=== PATIENT | female | born 1945 | race Caucasian/White ===

== ENCOUNTER 2023-12-12 08:18 | Observation (INO) ==
--- NOTE | 2023-12-12 08:36 | ED.PDOC ---
General ED Provider: Dr. REESE CARDENAS Chief Complaint: Abdominal Pain Stated Complaint: comes to the ER with diffuse abdominal cramping that started yesterday worse today. Time Seen by Provider: 12/12/23 08:34 Information Source: Patient Primary Care Provider: BRIDGET WALKER Nursing and Triage Documentation Reviewed and Agree: Yes What is Opioid Naive?: *Opioid Naive implies the patient is not already taking opioids or not chronically receiving opioids on a daily basis. *PRN dosing is not "usually" associated with tolerance. *Patients are at higher risk of over-sedation and aspiration. What is Opioid Tolerant?: *Opioid Tolerance implies less than the expected response to an opioid. *Acquired tolerance is defined by the patient taking 60mg of oral morphine daily (or equianalgesic dose of another opioid) for 1 week or more. *Often associated with chronic pain. *May take more than usual dose to achieve desired pain control. Review of Systems Review Of Systems Constitutional: Reports No symptoms GI: Reports Diarrhea, Nausea and Vomiting Musculoskeletal: Reports No symptoms Skin: Reports No symptoms All Other Systems: Reviewed and Negative [facility] Medical History (Updated 12/12/23 @ 11:11 by SHANICE KATHLEEN RN) Aftercare following left hip joint replacement surgery Z47.1 - Aftercare following joint replacement surgery (ICD-10) Z96.642 - Presence of left artificial hip joint (ICD-10) HTN (hypertension) I10 - Essential (primary) hypertension (ICD-10) Macular degeneration H35.30 - Unspecified macular degeneration (ICD-10) Diabetes mellitus E11.9 - Type 2 diabetes mellitus without complications (ICD-10) Family History Mother Heart attack Social History Smoking and tobacco status: Never smoker Surgical History History of back surgery Z98.890 - Other specified postprocedural states (ICD-10) History of left hip replacement Z96.642 - Presence of left artificial hip joint (ICD-10) Female Reproductive History Menstrual Hx Hysterectomy: No Hx Tubal Ligation: No Physical Exam Physical Exam Appearance: Reports Ill-appearing and Obese Ill-appearing: Moderate Pain Distress: None Eyes: Reports WANDA, EOMI and Conjunctiva clear Respiratory: Reports Airway patent, Breath sounds clear and Breath sounds equal Cardiovascular: Reports RRR, Pulses normal and No rub GI/: Reports Soft and Nontender Musculoskeletal: Reports Normal strength, ROM intact and No edema Skin: Reports Warm and Dry Neurological: Reports Motor intact Psychiatric: Reports Anxious Interpretation EKG Interpretation EKG Interpretation By: ED Physician Time of EKG #1: 09:19 Rate: Normal Rhythm: Sinus Ectopy: None [place]: [place] ST Segment: Normal Interpretation: Normal sinus rhythm normal EKG. No signs of ischemia normal axis. EKG Comparison: No significant changes Radiology Interpretation Radiology Interpretation By: Radiologist Radiology Results: No acute changes (1. Thickening of the wall of the first and second part of duodenum with mild adjacent mesenteric edema. This may indicate inflammation, infection, ulcer, or neoplasm. Clinical correlation and endoscopy advised. 2. Anemia. 3. Other chronic changes as described above. ) Exam Interpreted: CT Scan Course Course 12/12/23 08:44 12/12/23 08:44 Orders, Labs, Meds: Lab Review 12/12/23 12/12/23 12/12/23 08:44 09:29 09:52 WBC 8.93 RBC 3.81 L Hgb 10.1 L Hct 31.7 L MCV 83.2 MCH 26.5 L MCHC 31.9 RDW Coeff of Bartolo 13.9 Plt Count 245 Immature Gran % (Auto) 0.3 Neut % (Auto) 61.4 Lymph % (Auto) 26.3 Crowley % (Auto) 9.0 Eos % (Auto) 2.7 Baso % (Auto) 0.3 Neut # (Auto) 5.5 Lymph # (Auto) 2.4 Crowley # (Auto) 0.8 Eos # (Auto) 0.2 Baso # (Auto) 0.0 Immature Gran # (Auto) 0.0 Sodium 133.3 L Potassium 3.89 Chloride 103.3 Carbon Dioxide 22.3 Anion Gap 11.59 BUN 22.6 H Creatinine 1.10 Estimated GFR (MDRD) 48.00 BUN/Creatinine Ratio 20.54 Glucose 193.7 H Calcium 9.40 Total Bilirubin 0.59 AST 33.2 ALT 19.3 Alkaline Phosphatase 95.1 Total Creatine Kinase 134.5 CK-MB (CK-2) 2.050 CK-MB (CK-2) % 1.5200 Troponin I < 0.012 Total Protein 7.21 Albumin 3.80 Globulin 3.41 Albumin/Globulin Ratio 1.11 Amylase 94.6 Lipase 739.1 H Urine Color Yellow Urine Clarity Clear Urine pH 6.0 Ur Specific [place] 1.010 Urine Protein Negative Urine Glucose (UA) Negative Urine Ketones Negative Urine Blood Negative Urine Nitrite Negative Urine Bilirubin Negative Urine Urobilinogen 0.2 Ur Leukocyte Esterase Negative SARS CoV-2 RNA Rapid PATRICIA Negative Orders Category Date Time Status ADMIT OBSERVATION [PLACE PATIENT OBSERVATION] .TO ADMISSION 12/12/23 09:51 Active MEDSURG (MONITORED BED) EKG-(ED ONLY) Stat CARDIO 12/12/23 08:35 Completed TELEMETRY MONITORING TELE CARE 12/12/23 09:51 Active ED IV/MEDIPORT/POWERPORT .ONCE EMERGENCY 12/12/23 08:34 Active AMYLASE Stat LAB 12/12/23 08:44 Completed CBC W/ AUTO DIFF Stat LAB 12/12/23 08:44 Completed COMPREHENSIVE METABOLIC PANEL Stat LAB 12/12/23 08:44 Completed CREATINE KINASE Stat LAB 12/12/23 08:44 Completed LIPASE Stat LAB 12/12/23 08:44 Completed SARS COV-2 RNA RAPID PATRICIA Stat LAB 12/12/23 09:52 Completed TROPONIN I Stat LAB 12/12/23 08:44 Completed URINALYSIS C & S IF INDICATED Stat LAB 12/12/23 09:29 Completed 0.9 % Sodium Chloride [Saline Flush] Meds 12/12/23 08:34 Active 1 syr IVF PRN PRN Morphine Sulfate [Morphine 2 mg/ml Syringe] Meds 12/12/23 08:34 Discontinued 2 mg IVP ONCE ONE Ondansetron HCl/Pf [Zofran 4 mg/2 ml] Meds 12/12/23 08:34 Discontinued 4 mg IVP ONCE STA Sodium Chloride 0.9% [Sodium Chloride] 1,000 ml Meds 12/12/23 08:[address] ABDOMEN/PELVIS WO CONTRAST Stat RADS 12/12/23 08:34 Completed Medications Generic Name Dose Route Start Last Admin Trade Name Freq PRN Reason Stop Dose Admin Acetaminophen 650 mg 12/12/23 10:40 Acetaminophen 325 Mg Tablet PO Q4H PRN Mild Pain Calcium/Vitamin D 1 each 12/13/23 09:00 Calcium Carbonate/Vitamin D3 500 Mg/5 Mcg(200iu) 1 Each Tablet PO DAILY [facility] Donepezil HCl 5 mg 12/12/23 17:00 Donepezil Hcl 10 Mg Tablet PO QPM [facility] Ferrous Sulfate 324 mg 12/13/23 09:00 Ferrous Sulfate 324 Mg Tablet. PO DAILY [facility] Fluoxetine HCl 20 mg 12/12/23 21:00 Fluoxetine Hcl 20 Mg Capsule PO BID [facility] Dextrose/Sodium Chloride 1,000 mls @ 100 mls/hr 12/12/23 11:00 12/12/23 11:05 Dextrose 5%-Ns Iv Solution IV 100 mls/hr .Q10H JIMBO Administration Insulin Human Regular 0 unit 12/12/23 10:40 Insulin Regular, Human 100 Unit/Ml (10ml) Vial SUBCUT PRN PRN Hyperglycemia Protocol Ketorolac Tromethamine 15 mg 12/12/23 11:23 Ketorolac Tromethamine 15 Mg/Ml Vial IVP 12/16/23 11:23 Q6HR PRN Pain Levothyroxine Sodium 112 mcg 12/13/23 06:00 Levothyroxine Sodium 112 Mcg Tablet PO QDAC2 [facility] Metoclopramide HCl 5 mg 12/12/23 11:23 Metoclopramide Hcl 10 Mg/2 Ml IVP Q6H PRN Nausea / Vomiting Metoprolol Succinate 50 mg 12/13/23 09:00 Metoprolol Succinate 50 Mg Tab.Er.24h PO DAILY [facility] Omeprazole 40 mg 12/13/23 06:00 Omeprazole 20 Mg Capsule. PO QDAC2 [facility] Ondansetron HCl 4 mg 12/12/23 11:23 Ondansetron Hcl/Pf 4 Mg/2 Ml Sdv IVP Q6H PRN Nausea / Vomiting Pantoprazole Sodium 40 mg 12/12/23 11:25 12/12/23 11:52 Pantoprazole Sodium 40 Mg Vial IVP 40 mg DAILY [facility] Administration Sodium Chloride 1 syr 12/12/23 08:34 12/12/23 11:06 0.9% Sodium Chloride 10 Ml Disp.Syrin IVF 1 syr PRN PRN Administration To flush IV Discontinued Medications Generic Name Dose Route Start Last Admin Trade Name Freq PRN Reason Stop Dose Admin Sodium Chloride 1,000 mls @ 1,000 mls/hr 12/12/23 08:36 12/12/23 09:57 Sodium Chloride IV 12/12/23 09:35 Infused BOLUS STA Infusion Morphine Sulfate 2 mg 12/12/23 08:34 12/12/23 08:53 Morphine Sulfate 2 Mg/Ml Syringe IVP 12/12/23 08:35 2 mg ONCE ONE Administration Ondansetron HCl 4 mg 12/12/23 08:34 12/12/23 08:53 Ondansetron Hcl/Pf 4 Mg/2 Ml Sdv IVP 12/12/23 08:35 4 mg ONCE STA Administration Vital Signs: Temp Pulse Resp BP Pulse Ox 12/12/23 08:29 97.8 F 87 17 119/60 99 Discharge Plan Discharge Patient Disposition: PLACED OBSERVATION Discharge Problem: Acute pancreatitis Qualifiers: Pancreatitis type: unspecified pancreatitis type Acute pancreatitis complication: unspecified Qualified Code(s): K85.90 - Acute pancreatitis without necrosis or infection, unspecified Did you review [place] [employer] [employer] for ALL controlled substances?: No ED Provider: REESE CARDENAS Condition: Fair Physician Progress Note: []
[2023-12-12 08:48] LABS: BASOPHILS % (AUTO) 0.3 % (0.0-3.0); EOSINOPHILS # (AUTO) 0.2 K/ul (0.0-0.7); EOSINOPHILS % (AUTO) 2.7 % (0.0-7.0); HEMATOCRIT 31.7 % (37.0-47.0); HEMOGLOBIN 10.1 g/dl (12.0-16.0); IMMATURE GRANULOCYTE % (AUTO) 0.3 % (0.0-5.0); LYMPHOCYTES # (AUTO) 2.4 K/uL (0.60-3.4); LYMPHOCYTES % (AUTO) 26.3 (10.0-50.0); MEAN CORPUSCULAR HEMOGLOBIN 26.5 pg (27.0-31.0); MEAN CORPUSCULAR HGB CONC 31.9 (31.8-35.4); MEAN CORPUSCULAR VOLUME 83.2 fl (81.0-99.0); MONOCYTES # (AUTO) 0.8 K/uL (0.4-2.0); NEUTROPHILS # (AUTO) 5.5 K/ul (2.0-6.9); NEUTROPHILS % (AUTO) 61.4 % (42.2-75.2); PLATELET COUNT 245 10^3/uL (140-440); RDW COEFFICIENT OF VARIATION 13.9 % (11.6-14.8); RED BLOOD COUNT 3.81 10^6/ul (4.20-5.40); WHITE BLOOD COUNT 8.93 K/ul (4.6-10.2)
[2023-12-12] MEDS: SODIUM CHLORIDE 1,000 ML IV STA (08:52)
[2023-12-12] MEDS: ZOFRAN 4 MG/2 ML IVP STA (08:53)
[2023-12-12] MEDS: MORPHINE 2 MG/ML SYRINGE IVP ONE (08:53)
[2023-12-12 09:08] LABS: ALANINE AMINOTRANSFERASE 19.3 U/L (0-35); ALKALINE PHOSPHATASE 95.1 U/L (53-141); AMYLASE 94.6 U/L (30-110); ASPARTATE AMINO TRANSFERASE 33.2 U/L (14-36); BILIRUBIN,TOTAL 0.59 mg/dL (0.2-1.3); BLOOD UREA NITROGEN 22.6 mg/dL (7-17); CARBON DIOXIDE 22.3 mmol/L (22-30.0); CHLORIDE 103.3 mmol/L (98-107); CREATINE KINASE 134.5 U/L (30-135); GLUCOSE 193.7 mg/dL (74-106); LIPASE 739.1 U/L (23-300); SODIUM 133.3 mmol/L (134.5-145); TOTAL PROTEIN 7.21 g/dL (6.3-8.2)
[2023-12-12 09:20] LABS: POTASSIUM 3.89 mmol/L (3.5-5.1); TROPONIN I < 0.012 ng/ml (0.0000-0.120)
[2023-12-12 09:36] LABS: BILIRUBIN,URINE Negative (NEGATIVE); CLARITY,URINE Clear (CLEAR); COLOR,URINE Yellow (YELLOW); GLUCOSE, URINE (UA) Negative (NEGATIVE); KETONES,URINE Negative (NEGATIVE); LEUKOCYTE ESTERASE ,URINE Negative (NEGATIVE); NITRITE,URINE Negative (NEGATIVE); PROTEIN,URINE Negative (NEGATIVE); URINE, BLOOD Negative (NEGATIVE); UROBILINOGEN,URINE 0.2 (0.2)
--- NOTE | 2023-12-12 09:38 | CT ---
EXAM: CT ABDOMEN AND PELVIS WITHOUT CONTRAST HISTORY: Abdominal and pelvic pain. Back pain. TECHNIQUE: CT acquisition of the abdomen and pelvis from the lower thorax through the pelvis without IV contrast administration. 2-D coronal and sagittal reformatted images were obtained from the axial source images. Oral Contrast: None. CT Dose Reduction Techniques Performed: Yes. COMPARISON: Noncontrast CT scan of the abdomen and pelvis dated 02/23/2016. FINDINGS: Lower Thorax: Old calcified granuloma in the right middle lobe inferiorly. Noncalcified 0.4-cm nodul e in the left lower lobe, unchanged. No pleural effusion or pericardial effusion. Low attenuation b lood in the heart consistent with anemia. Liver: No mass. Normal morphology. Biliary: The gallbladder is surgically absent with clips noted in the gallbladder bed. The bile duct s are normal. Pancreas: No mass or evidence of pancreatitis. No duct dilation. Spleen: No mass. No splenomegaly. Adrenals: Normal right adrenal. Unchanged left adrenal adenoma. Kidneys/Ureters: No renal mass. No calculus or hydronephrosis. GI Tract: No bowel dilation. Thickening of the wall of the first and second part of the duodenum wit h adjacent mild mesenteric edema. No other bowel wall thickening. Diverticulosis of the colon with no evidence of diverticulitis. Normal appendix. Peritoneal Cavity: No ascites. Retroperitoneum: No fluid collection. Lymph Nodes: No lymphadenopathy. Vasculature: There are aortic calcifications. No aortic or iliac aneurysm within limitations of nonc ontrast examination. Pelvis: No mass. Bladder is normal. The uterus is surgically absent. Bones/Soft Tissues: Old compression fracture of T12. No acute fracture or lytic lesion. Prior fusio n at L4-5. Visualized abdominal wall soft tissues are normal. IMPRESSION: 1. Thickening of the wall of the first and second part of duodenum with mild adjacent mesenteric zaina ma. This may indicate inflammation, infection, ulcer, or neoplasm. Clinical correlation and endosco py advised. 2. Anemia. 3. Other chronic changes as described above. All CT scans are performed using dose optimization techniques as appropriate to the performed exam an d include at least one of the following: Automated exposure control, adjustment of the mA and/or kV according t o size, and the use of iterative reconstruction technique.
[2023-12-12 10:22] LABS: SARS COV-2 RNA RAPID NAAT NEGATIVE (NEGATIVE)
[2023-12-12] MEDS ORDERED: TYLENOL PO PRN (10:40)
[2023-12-12 11:05] VITALS: BMI 25.7
[2023-12-12] MEDS: DEXTROSE 5%-NS IV SOLUTION 1,000 ML IV SCH (11:05)
[2023-12-12] MEDS ORDERED: REGLAN IVP PRN (11:23)
[2023-12-12] MEDS ORDERED: ZOFRAN 4 MG/2 ML IVP PRN (11:23)
[2023-12-12] MEDS ORDERED: TORADOL IVP PRN (11:23)
--- NOTE | 2023-12-12 11:24 | PCM ---
Date of Service Date Seen by Provider: 12/12/23 Time Seen by Provider: 11:20 Admit Day/Time Admission Date: 12/12/23 Reason for Admission Chief Complaint: ACUTE PANCREATITIS Hospital Provider Hospital Provider: EZEQUIEL SALAZAR, [facility] [place] Primary Care Physician Primary Care Physician: BRIDGET WALKER History of Present Illness History of Present Illness: 78 yo female presented to the ER with abdominal pain. Patient reports that the abdominal pain started yesterday "out of no where". She reports that she thought she had picked up something viral but the pain kept getting worse. Attempted bland diet without relief of pain. Describes the pain as cramping located in lower abdomen with radiation to lower back. Denies any pmh of pancreatitis. Has pmh of dm2. Denies any fever, chills, vomiting, diarrhea, chest pain, or SOB. Does report nausea this am. Case Discussed With Case Discussed With: Patient's case was discussed with the ER Physicians, Dr. Tucker. 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 Z47.1 - Aftercare following joint replacement surgery (ICD-10) Z96.642 - Presence of left artificial hip joint (ICD-10) HTN (hypertension) I10 - Essential (primary) hypertension (ICD-10) Macular degeneration H35.30 - Unspecified macular degeneration (ICD-10) Diabetes mellitus E11.9 - Type 2 diabetes mellitus without complications (ICD-10) Surgical History History of back surgery Z98.890 - Other specified postprocedural states (ICD-10) History of left hip replacement Z96.642 - Presence of left artificial hip joint (ICD-10) Family History Mother Heart attack Social History Smoking and tobacco status: Never smoker Allergies Allergies Allergy/AdvReac Type Severity Reaction Status Date / Time aspirin AdvReac Verified 12/12/23 08:35 hydrocodone AdvReac Unknown Verified 12/12/23 08:35 tramadol [From Ultram] AdvReac Verified 12/12/23 08:35 Current Medications Home Medications calcium carb,cit ER 600 mg-vit D3 12.5 mcg (500 unit) tablet,ext.rel 1 ea PO DAILY 09/11/13 [History Confirmed 12/12/23 Last Taken 01/28/18] ferrous fumarate 55 mg (18 mg iron) tablet,extended release (iron ER) 65 mg PO DAILY 09/11/13 [History Confirmed 12/12/23 Last Taken 01/28/18] hydrochlorothiazide 12.5 mg tablet 12.5 mg PO DAILY 09/11/13 [History Confirmed 12/12/23 Last Taken 01/28/18] insulin NPH isoph U-100 human 100 unit/mL (3 mL) subcutaneous pen (Humulin N Pen) 50 units subcut DAILY 09/11/13 [History Confirmed 12/12/23 Last Taken 01/28/18] levothyroxine 112 mcg tablet 112 mcg PO QDAC 09/11/13 [History Confirmed Last Taken 01/28/18] metoprolol succinate 50 mg tablet,extended release 24 hr 50 mg PO DAILY 09/11/13 [History Confirmed 12/12/23 Last Taken 01/28/18] omeprazole 40 mg capsule,delayed release (Prilosec) 1 cap PO DAILY 09/11/13 [History Confirmed 12/12/23 Last Taken 01/28/18] acetaminophen 300 mg-codeine 30 mg tablet 1 tab PO Q6H #10 tabs 01/28/18 [Rx Confirmed 12/12/23 Last Taken Unknown] donepezil 5 mg tablet 5 mg PO .night 12/12/23 [History Confirmed 12/12/23 Last Taken Unknown] fluoxetine 20 mg capsule 20 mg PO BID 12/12/23 [History Confirmed 12/12/23 Last Taken Unknown] Home Acetaminophen (Acetaminophen 325 Mg Tablet) 650 mg PO Q4H PRN PRN Reason: Mild Pain Donepezil HCl (Donepezil Hcl 10 Mg Tablet) 5 mg PO .night JIMBO Fluoxetine HCl (Fluoxetine Hcl 20 Mg Capsule) 20 mg PO BID JIMBO Dextrose/Sodium Chloride (Dextrose 5%-Ns Iv Solution) 1,000 mls @ 100 mls/hr IV .Q10H JIMBO Last Admin: 12/12/23 11:05 Dose: 100 mls/hr Insulin Human Regular (Insulin Regular, Human 100 Unit/Ml (10ml) Vial) 0 unit SUBCUT PRN PRN; Protocol PRN Reason: Hyperglycemia Ketorolac Tromethamine (Ketorolac Tromethamine 15 Mg/Ml Vial) 15 mg IVP Q6HR PRN PRN Reason: Pain Stop: 12/16/23 11:23 Levothyroxine Sodium (Levothyroxine Sodium 112 Mcg Tablet) 112 mcg PO QDAC JIMBO Metoclopramide HCl (Metoclopramide Hcl 10 Mg/2 Ml) 5 mg IVP Q6H PRN PRN Reason: Nausea / Vomiting Metoprolol Succinate (Metoprolol Succinate 50 Mg Tab.Er.24h) 50 mg PO DAILY JIMBO Non-Formulary Medication (Ferrous Fumarate [Iron]) 65 mg PO DAILY JIMBO Non-Formulary Medication (Calcium Carb And Citrate-Vitd3) 1 each PO DAILY [facility]IM[facility] Omeprazole (Omeprazole 20 Mg Capsule.Dr) 40 mg PO DAILY [facility]IM[facility] Ondansetron HCl (Ondansetron Hcl/Pf 4 Mg/2 Ml Sdv) 4 mg IVP Q6H PRN PRN Reason: Nausea / Vomiting Pantoprazole Sodium (Pantoprazole Sodium 40 Mg Vial) 40 mg IVP DAILY [facility] Sodium Chloride (0.9% Sodium Chloride 10 Ml Disp.Syrin) 1 syr IVF PRN PRN PRN Reason: To flush IV Last Admin: 12/12/23 11:06 Dose: 1 syr Discontinued Medications Sodium Chloride (Sodium Chloride) 1,000 mls @ 1,000 mls/hr IV BOLUS STA Stop: 12/12/23 09:35 Last Infusion: 12/12/23 09:57 Dose: Infused Morphine Sulfate (Morphine Sulfate 2 Mg/Ml Syringe) 2 mg IVP ONCE ONE Stop: 12/12/23 08:35 Last Admin: 12/12/23 08:53 Dose: 2 mg Ondansetron HCl (Ondansetron Hcl/Pf 4 Mg/2 Ml Sdv) 4 mg IVP ONCE STA Stop: 12/12/23 08:35 Last Admin: 12/12/23 08:53 Dose: 4 mg Opioid Naive vs. Tolerant Does Patient Take Opioids?: No Is Patient Opioid Naive?: Yes What is Opioid Naive?: *Opioid Naive implies the patient is not already taking opioids or not chronically receiving opioids on a daily basis. *PRN dosing is not "usually" associated with tolerance. *Patients are at higher risk of over-sedation and aspiration. Is Patient Opioid Tolerant?: No What is Opioid Tolerant?: *Opioid Tolerance implies less than the expected response to an opioid. *Acquired tolerance is defined by the patient taking 60mg of oral morphine daily (or equianalgesic dose of another opioid) for 1 week or more. *Often associated with chronic pain. *May take more than usual dose to achieve desired pain control. Review of Systems Constitutional: Reports No symptoms Head: Reports Normocephalic and Atraumatic Eyes: Reports No symptoms Ears: Reports No symptoms Nose: Reports No symptoms Mouth: Reports No symptoms Throat: Reports No symptoms Cardiovascular: Reports No symptoms Respiratory: Reports No symptoms Gastrointestinal: Reports Nausea and Abdominal pain (cramping) Genitourinary: Reports No Symptoms Musculoskeletal: Reports No symptoms Endocrine: Reports No symptoms Hematology: Reports No symptoms Immunology: Reports No symptoms Neurological: Reports No symptoms Psychiatric: Reports No symptoms Physical examination Most Recent Vital Signs: Most Recent Vital Signs Temperature 98.8 F 12/12/23 10:49 Temperature Source Oral 12/12/23 10:49 Temperature Source Infrared 12/12/23 08:29 Pulse Rate 94 12/12/23 10:49 Respiratory Rate 16 12/12/23 10:49 Blood Pressure 119/60 12/12/23 08:29 Blood Pressure Left Arm 145/82 12/12/23 10:49 Blood Pressure Position Sitting 12/12/23 10:49 O2 Sat by Pulse Oximetry 98 12/12/23 10:49 Oxygen Delivery Method Room Air 12/12/23 11:00 Height 5 ft 4 in 12/12/23 10:49 Weight 150 lb 4 oz 12/12/23 10:49 Appearance: Positive No Apparent Distress, Alert and Oriented x3 and Other (SELDOVIA) Skin: Positive Warm and Good Color HEENT: Positive Normocephalic, Atraumatic and PERRLA Neck: Positive Supple and Midline Trachea Chest/Lungs: Positive Symmetrical With Equal Breath Sounds, Clear to Auscultation Bilaterally and Good Air Movement all 4 Lung Angulo Heart: Positive RRR and Pulses Normal GI/: Positive Soft, Nontender, Bowel Sounds Normal, No Distention and No Organomegaly Musculoskeletal: Positive Not Examined Extremities: Positive Intact Peripheral Pulses, Stable Joints Without Laxity, Good ROM in All Joints and Other (foot drop to R foot) Neurological: Positive Sensation Intact, Motor intact, Reflexes Intact, Alert, Oriented and Muscle Strength 5/5 in Upper and Lower Extremities Bilaterally Psychiatric: Positive Oriented x4, Appropriate Mood, Appropriate Affect and Intact Memory Labs This Visit Labs This Visit: Labs This Visit 12/12/23 12/12/23 12/12/23 08:44 09:29 09:52 WBC 8.93 RBC 3.81 L Hgb 10.1 L Hct 31.7 L MCV 83.2 MCH 26.5 L MCHC 31.9 RDW Coeff of Bartolo 13.9 Plt Count 245 Immature Gran % (Auto) 0.3 Neut % (Auto) 61.4 Lymph % (Auto) 26.3 [place] % (Auto) 9.0 Eos % (Auto) 2.7 Baso % (Auto) 0.3 Neut # (Auto) 5.5 Lymph # (Auto) 2.4 [place] # (Auto) 0.8 Eos # (Auto) 0.2 Baso # (Auto) 0.0 Immature Gran # (Auto) 0.0 Sodium 133.3 L Potassium 3.89 Chloride 103.3 Carbon Dioxide 22.3 Anion Gap 11.59 BUN 22.6 H Creatinine 1.10 Estimated GFR (MDRD) 48.00 BUN/Creatinine Ratio 20.54 Glucose 193.7 H Calcium 9.40 Total Bilirubin 0.59 AST 33.2 ALT 19.3 Alkaline Phosphatase 95.1 Total Creatine Kinase 134.5 CK-MB (CK-2) 2.050 CK-MB (CK-2) % 1.5200 Troponin I < 0.012 Total Protein 7.21 Albumin 3.80 Globulin 3.41 Albumin/Globulin Ratio 1.11 Amylase 94.6 Lipase 739.1 H Urine Color Yellow Urine Clarity Clear Urine pH 6.0 Ur Specific [place] 1.010 Urine Protein Negative Urine Glucose (UA) Negative Urine Ketones Negative Urine Blood Negative Urine Nitrite Negative Urine Bilirubin Negative Urine Urobilinogen 0.2 Ur Leukocyte Esterase Negative SARS CoV-2 RNA Rapid PATRICIA Negative Imaging Imaging: EXAM: CT ABDOMEN AND PELVIS WITHOUT CONTRAST IMPRESSION: 1. Thickening of the wall of the first and second part of duodenum with mild adjacent mesenteric edema. This may indicate inflammation, infection, ulcer, or neoplasm. Clinical correlation and endoscopy advised. 2. Anemia. 3. Other chronic changes as described above. Review Statement Review Statement: I have independently reviewed and interpreted the labs/EKGs/imaging that were ordered by the ER provider. I have reviewed all outside records that are available currently in our EMR including imaging/notes/labs from previous visits. Plan Plan: 1. Acute Pancreatitis - NPO will advance as pain resolves, D5NS@100mL/hr, toradol Q6H prn, zofran and reglan Q6H prn, protonix daily 2. DM Type 2 - chronic, holding home insulin at this time due to NPO status, accuchecks Q4H with ssi 3. Hypertension - chronic, continue home medications 4. Anxiety/Depression - chronic, continue home medications DVT Prophylaxis: Ambulation Time Spent: Greater than 80 minutes spent with patient, 50% of the time spent with this patient was devoted to counseling and coordination of care. [facility] Plannin minutes spent discussing advance care planning. Disposition: Admit to: Med/surg Observation Discussed Plan of Care with Dr. Jose Esparza. Medications Medication Orders: Medications Ordered Category Date Time Status 0.9 % Sodium Chloride [Saline Flush] Meds 12/12/23 08:34 Active 1 syr IVF PRN PRN Acetaminophen [Tylenol] Meds 12/12/23 10:40 Active 650 mg PO Q4H PRN Dextrose 5 % and 0.9 % NaCl [Dextrose 5%-Ns IV Solution Meds 12/12/23 11:00 Active ] 1,000 ml IV 100 mls/hr Donepezil HCl [Aricept] Meds 12/12/23 11:30 Ordered 5 mg PO .night Fluoxetine HCl [Prozac] Meds 12/12/23 21:00 Ordered 20 mg PO BID Insulin Regular, Human [Humulin R] Meds 12/12/23 10:40 Active See Protocol SUBCUT PRN PRN Ketorolac Tromethamine [Toradol] Meds 12/12/23 11:23 Ordered 15 mg IVP Q6HR PRN Levothyroxine Sodium [Synthroid] Meds 12/13/23 06:30 Ordered 112 mcg PO QDAC Metoclopramide HCl [Reglan] Meds 12/12/23 11:23 Ordered 5 mg IVP Q6H PRN Metoprolol Succinate [Toprol Xl] Meds 12/13/23 09:00 Ordered 50 mg PO DAILY Omeprazole [Prilosec] Meds 12/13/23 09:00 Ordered 40 mg PO DAILY Ondansetron HCl/Pf [Zofran 4 mg/2 ml] Meds 12/12/23 11:23 Ordered 4 mg IVP Q6H PRN Pantoprazole Sodium [Protonix] Meds 12/12/23 11:25 Ordered 40 mg IVP DAILY calcium carb and citrate-vitD3 Meds 12/13/23 09:00 Ordered 1 each PO DAILY ferrous fumarate [iron] Meds 12/13/23 09:00 Ordered 65 mg PO DAILY
[2023-12-12] MEDS: PROTONIX IVP SCH (11:52)
[2023-12-12] MEDS: ARICEPT PO SCH (17:51)
[2023-12-12] MEDS: PROZAC PO SCH (20:17)
[2023-12-13] MEDS: PRILOSEC PO SCH (05:08)
[2023-12-13] MEDS: SYNTHROID PO SCH (05:08)
[2023-12-13 05:11] LABS: BASOPHILS % (AUTO) 0.6 % (0.0-3.0); EOSINOPHILS # (AUTO) 0.3 K/ul (0.0-0.7); EOSINOPHILS % (AUTO) 6.3 % (0.0-7.0); HEMATOCRIT 29.5 % (37.0-47.0); HEMOGLOBIN 9.1 g/dl (12.0-16.0); LYMPHOCYTES # (AUTO) 1.9 K/uL (0.60-3.4); LYMPHOCYTES % (AUTO) 34.9 (10.0-50.0); MEAN CORPUSCULAR HEMOGLOBIN 26.7 pg (27.0-31.0); MEAN CORPUSCULAR HGB CONC 30.8 (31.8-35.4); MEAN CORPUSCULAR VOLUME 86.5 fl (81.0-99.0); MONOCYTES # (AUTO) 0.6 K/uL (0.4-2.0); MONOCYTES % (AUTO) 11.3 (0-10); NEUTROPHILS # (AUTO) 2.6 K/ul (2.0-6.9); NEUTROPHILS % (AUTO) 46.9 % (42.2-75.2); PLATELET COUNT 182 10^3/uL (140-440); RDW COEFFICIENT OF VARIATION 13.8 % (11.6-14.8); RED BLOOD COUNT 3.41 10^6/ul (4.20-5.40); WHITE BLOOD COUNT 5.42 K/ul (4.6-10.2)
[2023-12-13 05:28] LABS: ALANINE AMINOTRANSFERASE 15.6 U/L (0-35); ALBUMIN 3.24 g/dL (3.5-5.0); ALKALINE PHOSPHATASE 82.4 U/L (53-141); BILIRUBIN,TOTAL 0.65 mg/dL (0.2-1.3); BLOOD UREA NITROGEN 14.5 mg/dL (7-17); CALCIUM 8.83 mg/dL (8.4-10.2); CARBON DIOXIDE 26.7 mmol/L (22-30.0); CHLORIDE 108.5 mmol/L (98-107); CREATININE 1.01 mg/dL (0.60-1.30); GLUCOSE 176.9 mg/dL (74-106); LIPASE 507.9 U/L (23-300); POTASSIUM 4.29 mmol/L (3.5-5.1); SODIUM 137.7 mmol/L (134.5-145); TOTAL PROTEIN 6.5 g/dL (6.3-8.2)
[2023-12-13] MEDS: CALCIUM 500 + VIT D 5 MCG (200 IU) TABLET PO SCH (08:51)
[2023-12-13] MEDS: TOPROL XL PO SCH (08:52)
[2023-12-13] MEDS: FERROUS SULFATE PO SCH (08:52)
[2023-12-13] MEDS ORDERED: [UNRECOGNIZED DRUG - OTHER] PO SCH (09:00)
[2023-12-13] MEDS ORDERED: FERROUS FUMARATE 55 MG PO SCH (09:00)
[2023-12-13] MEDS: HUMULIN R SUBCUT PRN (11:54)
--- NOTE | 2023-12-13 12:14 | DCSUM ---
Hospital Provider Hospital Provider: EZEQUIEL SALAZAR, [facility] Primary Care Physician Primary Care Physician: BRIDGET AARON [facility] Course Vital Signs: Most Recent Vital Signs Temperature 98.1 F 12/13/23 10:00 Temperature Source Temporal Artery Scan 12/13/23 10:00 Temperature Source Infrared 12/12/23 08:29 Pulse Rate 88 12/13/23 10:00 Respiratory Rate 18 12/13/23 10:00 Blood Pressure 144/78 H 12/13/23 10:00 Blood Pressure Mean 100 12/13/23 10:00 Blood Pressure Left Arm 145/82 12/12/23 10:49 Blood Pressure Location Right Arm 12/13/23 10:00 Blood Pressure Position Supine 12/13/23 05:32 O2 Sat by Pulse Oximetry 98 12/13/23 10:00 Oxygen Delivery Method Room Air 12/13/23 11:00 Oxygen Flow Rate 3 12/13/23 02:00 Height 5 ft 4 in 12/13/23 09:47 Weight 150 lb 4 oz 12/13/23 09:47 Telemetry Type Remote Telemetry 12/13/23 06:56 Telemetry Monitoring Continues 12/13/23 06:56 Telemetry Heart Rate 81 12/13/23 06:56 EKG NJ Interval 0.20 12/13/23 06:56 EKG QRS Interval 0.05 L 12/13/23 06:56 Telemetry Strip Reading SR 12/13/23 06:56 Lab Results Last 24 Hours: 12/13/23 04:59 WBC 5.42 RBC 3.41 L Hgb 9.1 L Hct 29.5 L MCV 86.5 MCH 26.7 L MCHC 30.8 L RDW Coeff of Bartolo 13.8 Plt Count 182 Immature Gran % (Auto) 0.0 Neut % (Auto) 46.9 Lymph % (Auto) 34.9 Cooper % (Auto) 11.3 H Eos % (Auto) 6.3 Baso % (Auto) 0.6 Neut # (Auto) 2.6 Lymph # (Auto) 1.9 Cooper # (Auto) 0.6 Eos # (Auto) 0.3 Baso # (Auto) 0.0 Immature Gran # (Auto) 0.0 Sodium 137.7 Potassium 4.29 Chloride 108.5 H Carbon Dioxide 26.7 Anion Gap 6.79 BUN 14.5 Creatinine 1.01 Estimated GFR (MDRD) 53.00 BUN/Creatinine Ratio 14.35 Glucose 176.9 H Calcium 8.83 Total Bilirubin 0.65 AST 28.0 ALT 15.6 Alkaline Phosphatase 82.4 Total Protein 6.50 Albumin 3.24 L Globulin 3.26 Albumin/Globulin Ratio 0.99 Lipase 507.9 H Discharge Instructions Discharge Planning: Discharge Planning > 40 minutes If patient is discharged with left ventricular systolic dysfunction: Discharged with a beta pema? [] If no, why not? [] Discharged with an david/arb? [] If no, why not? [] Discharge Medications: Medications at Discharge (Home Meds & RX) calcium carb,cit ER 600 mg-vit D3 12.5 mcg (500 unit) tablet,ext.rel 1 ea PO DAILY 09/11/13 ferrous fumarate 55 mg (18 mg iron) tablet,extended release (iron ER) 65 mg PO DAILY 09/11/13 hydrochlorothiazide 12.5 mg tablet 12.5 mg PO DAILY 09/11/13 insulin NPH isoph U-100 human 100 unit/mL (3 mL) subcutaneous pen (Humulin N Pen) 50 units subcut DAILY 09/11/13 levothyroxine 112 mcg tablet 112 mcg PO QDAC 09/11/13 metoprolol succinate 50 mg tablet,extended release 24 hr 50 mg PO DAILY 09/11/13 omeprazole 40 mg capsule,delayed release (Prilosec) 1 cap PO DAILY 09/11/13 acetaminophen 300 mg-codeine 30 mg tablet 1 tab PO Q6H #10 tabs 01/28/18 donepezil 5 mg tablet 5 mg PO .night 12/12/23 fluoxetine 20 mg capsule 20 mg PO BID 12/12/23 Discharge Plan Discharge Discharge Orders: Discharge Patient (ONCE); Ordered 12/13/23 Ordered By: PIERRE HIGH Activity Restrictions/Additional Instructions: Soft bland diet, advance as tolerated to low fat diet Activity as tolerated Follow-up with PCP next week No changes to home medications Instructions: Pancreatitis (GEN), Low Fat Diet (GEN) Patient Disposition: HOME SELF-CARE Prescriptions: Continued metoprolol succinate 50 MG tablet extended release 24 hr 50 mg PO DAILY omeprazole [Prilosec] 40 MG capsule,delayed release(DR/EC) 1 cap PO DAILY iron 55 MG tablet extended release 65 mg PO DAILY levothyroxine 112 MCG tablet 112 mcg PO QDAC Humulin N Pen 100 UNIT/ML insulin pen 50 units subcut DAILY hydrochlorothiazide 12.5 MG tablet 12.5 mg PO DAILY calcium carb and citrate-vitD3 1 EACH tablet extended release 1 ea PO DAILY acetaminophen-codeine 1 TAB tablet 1 tab PO Q6H Qty: 10 0RF donepezil 5 mg tablet 5 mg PO .night Patient Comments: TAKE 1 TABLET BY MOUTH ONCE DAILY AT NIGHT fluoxetine 20 mg capsule 20 mg PO BID Patient Comments: TAKE 1 CAPSULE BY MOUTH ONCE DAILY Did you review [place] [employer] for ALL controlled substances?: No Discussed opioids are addictive and Narcan is available by prescription or from pharmacy.: No Condition: Fair
[2023-12-13 14:26] VITALS: BP 130/74; PULSE 83; RESP 16; TEMP 98.9
--- NOTE | 2023-12-29 09:35 | DCSUM ---
Admission Date Admission Date: 12/12/23 Discharge Date Discharge Date: 12/13/23 Admission Diagnosis Admission Diagnosis: 1. Acute Pancreatitis 2. DM Type 2 3. Hypertension 4. Anxiety/Depression Discharge Diagnosis Discharge Diagnosis: 1. Acute Pancreatitis - Improving 2. DM Type 2 - chronic, stable 3. Hypertension - chronic, stable 4. Anxiety/Depression - chronic, stable Hospital Provider Hospital Provider: EZEQUIEL SALAZAR, [facility] Primary Care Physician Primary Care Physician: BRIDGET WALKER Summary of History and Physical Summary of History and Physical: 78 yo female presented to the ER with abdominal pain. Patient reports that the abdominal pain started yesterday "out of no where". She reports that she thought she had picked up something viral but the pain kept getting worse. Attempted bland diet without relief of pain. Describes the pain as cramping located in lower abdomen with radiation to lower back. Denies any pmh of pancreatitis. Has pmh of dm2. Denies any fever, chills, vomiting, diarrhea, chest pain, or SOB. Does report nausea this am. Hospital Course Subjective: During stay, patient was NPO and received IV fluids overnight. Pain and nausea resolved and diet was advanced. Discussed to continue bland diet at home and advance as tolerated No changes made to home medications. Appearance: Pleasant, No Apparent Distress and Alert HEENT: MMM, Supple and No JVD CVS: No Murmur Abdomen: Soft and Non-Tender Respiratory: No Dyspnea Extremities: No Edema Vital Signs: Most Recent Vital Signs Temperature 98.9 F 12/13/23 14:00 Temperature Source Temporal Artery Scan 12/13/23 14:00 Temperature Source Infrared 12/12/23 08:29 Pulse Rate 83 12/13/23 14:00 Respiratory Rate 16 12/13/23 14:00 Blood Pressure 130/74 12/13/23 14:00 Blood Pressure Mean 92 12/13/23 14:00 Blood Pressure Left Arm 145/82 12/12/23 10:49 Blood Pressure Location Right Arm 12/13/23 14:00 Blood Pressure Position Supine 12/13/23 05:32 O2 Sat by Pulse Oximetry 98 12/13/23 14:00 Oxygen Delivery Method Room Air 12/13/23 15:41 Oxygen Flow Rate 3 12/13/23 02:00 Height 5 ft 4 in 12/13/23 09:47 Weight 150 lb 4 oz 12/13/23 09:47 Telemetry Type Remote Telemetry 12/13/23 13:00 Telemetry Monitoring Continues 12/13/23 13:00 Telemetry Heart Rate 71 12/13/23 13:00 EKG NJ Interval 20 H 12/13/23 13:00 EKG QRS Interval 0.07 12/13/23 13:00 Telemetry Strip Reading SR 12/13/23 13:00 Discharge Instructions Discharge Planning: Discharge Planning > 40 minutes If patient is discharged with left ventricular systolic dysfunction: NA Discharged with a beta pema? [] If no, why not? [] Discharged with an david/arb? [] If no, why not? [] DX: PANCREATITIS RX: NONE BLAND DIET ACTIVITY TOLERATED FOLLOW-UP WITH PCP Discharge Medications: Medications at Discharge (Home Meds & RX) calcium carb,cit ER 600 mg-vit D3 12.5 mcg (500 unit) tablet,ext.rel 1 ea PO DAILY 09/11/13 ferrous fumarate 55 mg (18 mg iron) tablet,extended release (iron ER) 65 mg PO DAILY 09/11/13 hydrochlorothiazide 12.5 mg tablet 12.5 mg PO DAILY 09/11/13 insulin NPH isoph U-100 human 100 unit/mL (3 mL) subcutaneous pen (Humulin N Pen) 50 units subcut DAILY 09/11/13 levothyroxine 112 mcg tablet 112 mcg PO QDAC 09/11/13 metoprolol succinate 50 mg tablet,extended release 24 hr 50 mg PO DAILY 09/11/13 omeprazole 40 mg capsule,delayed release (Prilosec) 1 cap PO DAILY 09/11/13 acetaminophen 300 mg-codeine 30 mg tablet 1 tab PO Q6H #10 tabs 01/28/18 donepezil 5 mg tablet 5 mg PO .night 12/12/23 fluoxetine 20 mg capsule 20 mg PO BID 12/12/23 oxycodone-acetaminophen 5 mg-325 mg tablet (Percocet) 1 tab PO Q6H PRN pain #10 tabs 12/16/23 prednisone 20 mg tablet 40 mg (2 x 20 mg) PO DAILY #10 tabs 12/16/23 Discharge Plan Discharge Discharge Orders: Discharge Patient (ONCE); Ordered 12/13/23 Ordered By: PIERRE HIGH Activity Restrictions/Additional Instructions: Soft bland diet, advance as tolerated to low fat diet Activity as tolerated Follow-up with PCP next week No changes to home medications Instructions: Pancreatitis (GEN), Low Fat Diet (GEN) Patient Disposition: HOME SELF-CARE Prescriptions: Continued metoprolol succinate 50 MG tablet extended release 24 hr 50 mg PO DAILY omeprazole [Prilosec] 40 MG capsule,delayed release(DR/EC) 1 cap PO DAILY iron 55 MG tablet extended release 65 mg PO DAILY levothyroxine 112 MCG tablet 112 mcg PO QDAC Humulin N Pen 100 UNIT/ML insulin pen 50 units subcut DAILY hydrochlorothiazide 12.5 MG tablet 12.5 mg PO DAILY calcium carb and citrate-vitD3 1 EACH tablet extended release 1 ea PO DAILY acetaminophen-codeine 1 TAB tablet 1 tab PO Q6H Qty: 10 0RF donepezil 5 mg tablet 5 mg PO .night Patient Comments: TAKE 1 TABLET BY MOUTH ONCE DAILY AT NIGHT fluoxetine 20 mg capsule 20 mg PO BID Patient Comments: TAKE 1 CAPSULE BY MOUTH ONCE DAILY No Action prednisone 20 mg tablet 40 mg PO DAILY Qty: 10 0RF oxycodone-acetaminophen [Percocet] 5-325 mg tablet 1 tab PO Q6H PRN (Reason: pain) Qty: 10 0RF Did you review [place] [facility] for ALL controlled substances?: No Discussed opioids are addictive and Narcan is available by prescription or from pharmacy.: No Condition: Fair Referrals: BRIDGET WALKER MD [Primary Care Provider] - 12/15/23 11:15 am
== END 2023-12-13 16:35 | disposition home or self-care (01) ==
LOC: ED 08:18 → MEDSURG B 08:18
PROVIDERS: ADMIT Hospitalist; ATTEND Nurse Practitioner Family